=== PATIENT | female | born 1970 | race Two or more races ===

== ENCOUNTER 2023-08-25 04:01 | Emergency (ER) | payer OTHER ==
[~2023-08-25] VITALS: Ht 157.5 cm; Wt 65.3 kg
[2023-08-25 07:58] VITALS: BP 138/84; PULSE 72; RESP 18; TEMP 97.6; O2SAT 100
[2023-08-25] MEDS ORDERED: CIPRSUS OT (08:13)
== END 2023-08-25 08:31 | disposition home or self-care (01) ==
LOC: ER 04:01
DX: H60.91 Unspecified otitis externa, right ear (principal); Z79.899 Other long term (current) drug therapy